=== PATIENT | male | born 1950 | race Caucasian/White ===

== ENCOUNTER 2017-07-20 18:05 | Inpatient (IN) | payer OTHER ==
[2017-07-20 22:05] LABS: ADD MAN DIFF? NO
[2017-07-20 22:06] LABS: BASOPHIL # 0.1 10^3/ul (0.0-0.1); BASOPHILS % 1.4 % (0.0-2.0); EOSINOPHILS # 0.3 10^3/ul (0.0-0.5); EOSINOPHILS % 4.3 % (0.0-7.0); HEMOGLOBIN 13.7 g/dl (14.0-18.0); LYMPHOCYTES # 2.1 10^3/ul (0.8-2.9); LYMPHOCYTES % 32.7 % (15.0-51.0); MEAN CORPUSCULAR HEMOGLOBIN 33.3 pg (29.0-33.0); MEAN CORPUSCULAR HGB CONC 34.3 g/dl (32.0-37.0); MEAN CORPUSCULAR VOLUME 97.1 fl (82.0-101.0); MEAN PLATELET VOLUME 10.5 fl (7.4-10.4); MONOCYTE # 0.8 10^3/ul (0.3-0.9); MONOCYTES % 12.8 % (0.0-11.0); NEUTROPHIL # 3.2 10^3/ul (1.6-7.5); NEUTROPHILS % 48.5 % (39.0-77.0); PLATELET COUNT 169 10^3/UL (140-415); RED BLOOD COUNT 4.12 10^6/ul (4.70-6.10); RED CELL DISTRIBUTION WIDTH 14.4 % (11.5-14.5)
[2017-07-20 22:06] LABS: WHITE BLOOD COUNT 6.5 10^3/ul (4.8-10.8)
[2017-07-20 22:18] LABS: PROTIME 16.4 Sec (11.9-14.9); PT RATIO 1.3
[2017-07-20 22:19] LABS: PARTIAL THROMBOPLASTIN TIME 35.9 Sec (25.0-35.0)
[2017-07-20] MEDS: SOD CHLORIDE 0.9% 500 ML IV (22:19)
[2017-07-20] MEDS: morphine 4 MG/ML VIAL IV (22:30)
[2017-07-20 23:00] LABS: ALANINE AMINOTRANSFERASE 49 IU/L (13-69); ALBUMIN 3.1 g/dl (3.3-4.9); ALBUMIN/GLOBULIN RATIO 0.63; ALKALINE PHOSPHATASE 153 IU/L (42-121); ANION GAP 15 (8-16); ASPARTATE AMINO TRANSFERASE 108 IU/L (15-46); BILIRUBIN,INDIRECT 1.6 mg/dl (0-1.1); BILIRUBIN,TOTAL 1.6 mg/dl (0.2-1.3); BLOOD UREA NITROGEN 9 mg/dl (7-20); CALCIUM 8.3 mg/dl (8.4-10.2); CARBON DIOXIDE 20 mmol/L (21-31); CHLORIDE 111 mmol/L (97-110); CREATININE 0.69 mg/dl (0.61-1.24); GLUCOSE 88 mg/dl (70-220); LIPASE 89 U/L (23-300); POTASSIUM 3.7 mmol/L (3.5-5.1); SODIUM 142 mmol/L (135-144)
[2017-07-20] MEDS: HYDROmorphONE 0.5 MG/0.5 ML SYG IV (23:26)
[2017-07-21] MEDS ORDERED: ACETAMINOPHEN 325 MG TAB PO (01:00)
[2017-07-21] MEDS ORDERED: ONDANSETRON 4 MG INJ IV (01:00)
[2017-07-21] MEDS ORDERED: traMADol 50 MG TAB PO (06:30)
[2017-07-21] MEDS: PANTOPRAZOLE 40 MG INJ IV (06:48)
[2017-07-21] MEDS: morphine 2 MG INJ IV (07:10)
[2017-07-21 08:43] LABS: ADD MAN DIFF? NO; HAAIG REFLEX REFLEX FILED
[2017-07-21 08:51] LABS: WHITE BLOOD COUNT 6.3 10^3/ul (4.8-10.8)
[2017-07-21 08:51] LABS: BASOPHIL # 0.1 10^3/ul (0.0-0.1); BASOPHILS % 1.4 % (0.0-2.0); EOSINOPHILS # 0.3 10^3/ul (0.0-0.5); EOSINOPHILS % 4.1 % (0.0-7.0); HEMATOCRIT 37.4 % (42.0-52.0); HEMOGLOBIN 12.8 g/dl (14.0-18.0); LYMPHOCYTES # 1.8 10^3/ul (0.8-2.9); LYMPHOCYTES % 28.7 % (15.0-51.0); MEAN CORPUSCULAR HEMOGLOBIN 33.4 pg (29.0-33.0); MEAN CORPUSCULAR HGB CONC 34.2 g/dl (32.0-37.0); MEAN CORPUSCULAR VOLUME 97.7 fl (82.0-101.0); MEAN PLATELET VOLUME 10.7 fl (7.4-10.4); MONOCYTE # 0.9 10^3/ul (0.3-0.9); MONOCYTES % 13.9 % (0.0-11.0); NEUTROPHIL # 3.3 10^3/ul (1.6-7.5); NEUTROPHILS % 51.6 % (39.0-77.0); PLATELET COUNT 162 10^3/UL (140-415); RED BLOOD COUNT 3.83 10^6/ul (4.70-6.10); RED CELL DISTRIBUTION WIDTH 14.6 % (11.5-14.5)
[2017-07-21 09:15] LABS: ALANINE AMINOTRANSFERASE 50 IU/L (13-69); ALBUMIN 2.8 g/dl (3.3-4.9); ALBUMIN/GLOBULIN RATIO 0.63; ALKALINE PHOSPHATASE 117 IU/L (42-121); ANION GAP 14 (8-16); ASPARTATE AMINO TRANSFERASE 98 IU/L (15-46); BILIRUBIN,INDIRECT 1.6 mg/dl (0-1.1); BILIRUBIN,TOTAL 1.6 mg/dl (0.2-1.3); BLOOD UREA NITROGEN 10 mg/dl (7-20); CALCIUM 8.1 mg/dl (8.4-10.2); CARBON DIOXIDE 21 mmol/L (21-31); CHLORIDE 112 mmol/L (97-110); CREATININE 0.73 mg/dl (0.61-1.24); GLUCOSE 78 mg/dl (70-220); POTASSIUM 3.9 mmol/L (3.5-5.1); SODIUM 143 mmol/L (135-144); TOTAL PROTEIN 7.2 g/dl (6.1-8.1)
[2017-07-21 09:45] LABS: HEPATITIS B SURFACE ANTIGEN NEGATIVE (NEGATIVE)
[2017-07-21 10:04] LABS: HEPATITIS B CORE ANTIBODY NEGATIVE (NEGATIVE)
[2017-07-21 10:05] LABS: HEPATITIS C VIRAL ANTIBODY REACTIVE (NEGATIVE)
[2017-07-21] MEDS: LIDOCAINE 1% (MDV) 10 ML INJ (11:18)
[2017-07-21] MEDS: FUROSEMIDE 20 MG INJ IV ×2 (11:34→17:31)
[2017-07-21] MEDS: SPIRONOLACTONE 25 MG TAB PO (11:34)
[2017-07-21] MEDS: METOPROLOL (XL) 25 MG TAB PO (11:34)
[2017-07-21 12:06] LABS: LACTATE DEHYDROGENASE 183 IU/L (313-618)
[2017-07-21 12:07] LABS: FLUID TYPE PARACENTESIS FLUID
[2017-07-21 12:21] LABS: FLD RBC 0 /uL; FLD WBC 0 /cmm
[2017-07-21 12:24] LABS: FLD TYPE PARACENTHESIS
[2017-07-21 12:25] LABS: FLD CLARITY CLEAR; FLD COLOR YELLOW
[2017-07-21 13:13] LABS: FLUID LD 183 U/L; FLUID TOTAL PROTEIN < 2.0 g/dl
[2017-07-22] MEDS: FUROSEMIDE 20 MG INJ IV ×2 (06:00→19:16)
[2017-07-22] MEDS: PANTOPRAZOLE 40 MG INJ IV (06:00)
[2017-07-22] MEDS: SPIRONOLACTONE 25 MG TAB PO (06:00)
[2017-07-22 06:24] LABS: ADD MAN DIFF? NO
[2017-07-22 06:30] LABS: BASOPHIL # 0.1 10^3/ul (0.0-0.1); BASOPHILS % 1.1 % (0.0-2.0); EOSINOPHILS # 0.2 10^3/ul (0.0-0.5); EOSINOPHILS % 2.8 % (0.0-7.0); HEMATOCRIT 37.5 % (42.0-52.0); HEMOGLOBIN 12.9 g/dl (14.0-18.0); LYMPHOCYTES # 2.1 10^3/ul (0.8-2.9); LYMPHOCYTES % 26.4 % (15.0-51.0); MEAN CORPUSCULAR HEMOGLOBIN 33.3 pg (29.0-33.0); MEAN CORPUSCULAR HGB CONC 34.4 g/dl (32.0-37.0); MEAN CORPUSCULAR VOLUME 96.9 fl (82.0-101.0); MEAN PLATELET VOLUME 10.7 fl (7.4-10.4); MONOCYTE # 1.2 10^3/ul (0.3-0.9); MONOCYTES % 14.4 % (0.0-11.0); NEUTROPHIL # 4.4 10^3/ul (1.6-7.5); PLATELET COUNT 156 10^3/UL (140-415); RED BLOOD COUNT 3.87 10^6/ul (4.70-6.10); RED CELL DISTRIBUTION WIDTH 14.2 % (11.5-14.5)
[2017-07-22 06:58] LABS: ANION GAP 13 (8-16); BLOOD UREA NITROGEN 12 mg/dl (7-20); CALCIUM 7.8 mg/dl (8.4-10.2); CARBON DIOXIDE 25 mmol/L (21-31); CHLORIDE 110 mmol/L (97-110); CREATININE 0.85 mg/dl (0.61-1.24); GLUCOSE 83 mg/dl (70-220); POTASSIUM 4.6 mmol/L (3.5-5.1); SODIUM 143 mmol/L (135-144)
[2017-07-22] MEDS: METOPROLOL (XL) 25 MG TAB PO (09:47)
[2017-07-22] MEDS ORDERED: BISACODYL 10 MG SUPP PR (10:30)
[2017-07-22 11:59] LABS: ADD MAN DIFF? NO
[2017-07-22 12:18] LABS: BASOPHIL # 0.1 10^3/ul (0.0-0.1); BASOPHILS % 1.3 % (0.0-2.0); EOSINOPHILS # 0.2 10^3/ul (0.0-0.5); EOSINOPHILS % 2.6 % (0.0-7.0); HEMOGLOBIN 12.2 g/dl (14.0-18.0); LYMPHOCYTES # 2.1 10^3/ul (0.8-2.9); LYMPHOCYTES % 27.1 % (15.0-51.0); MEAN CORPUSCULAR HEMOGLOBIN 33.2 pg (29.0-33.0); MEAN CORPUSCULAR HGB CONC 34.9 g/dl (32.0-37.0); MEAN CORPUSCULAR VOLUME 95.1 fl (82.0-101.0); MEAN PLATELET VOLUME 10.8 fl (7.4-10.4); MONOCYTES % 13.4 % (0.0-11.0); NEUTROPHIL # 4.3 10^3/ul (1.6-7.5); NEUTROPHILS % 55.5 % (39.0-77.0); PLATELET COUNT 164 10^3/UL (140-415); RED BLOOD COUNT 3.68 10^6/ul (4.70-6.10); RED CELL DISTRIBUTION WIDTH 14.2 % (11.5-14.5)
[2017-07-22 12:18] LABS: WHITE BLOOD COUNT 7.7 10^3/ul (4.8-10.8)
[2017-07-23] MEDS: PANTOPRAZOLE (EC) 40 MG TAB PO (06:24)
[2017-07-23] MEDS: SPIRONOLACTONE 25 MG TAB PO (06:24)
[2017-07-23] MEDS: FUROSEMIDE 20 MG INJ IV ×2 (06:25→17:36)
[2017-07-23] MEDS: METOPROLOL (XL) 25 MG TAB PO (09:00)
[2017-07-24] MEDS: PANTOPRAZOLE (EC) 40 MG TAB PO (05:19)
[2017-07-24] MEDS: SPIRONOLACTONE 25 MG TAB PO (05:23)
[2017-07-24] MEDS: FUROSEMIDE 20 MG INJ IV ×2 (05:25→18:31)
[2017-07-24] MEDS ORDERED: LORAZEPAM 2 MG INJ IV (07:00)
[2017-07-24] MEDS ORDERED: ONDANSETRON 4 MG INJ IV (07:00)
[2017-07-24 07:48] LABS: AMMONIA 103 umol/l (9-30)
[2017-07-24] MEDS: THIAMINE 100 MG TAB PO (09:00)
[2017-07-24] MEDS: MULTIVITAMINS THERAPEUTIC TAB PO (09:00)
[2017-07-24] MEDS: METOPROLOL (XL) 25 MG TAB PO (09:00)
[2017-07-24] MEDS: FOLIC ACID 1 MG TAB PO (09:00)
[2017-07-24] MEDS: LACTULOSE 30ML CUP PO ×3 (12:00→23:16)
[2017-07-24] MEDS: LORAZEPAM 2 MG INJ IV ×3 (12:29→23:47)
[2017-07-24] MEDS: RIFAXIMIN 550 MG TAB PO ×2 (13:45→21:00)
[2017-07-24] MEDS: morphine 2 MG INJ IV (15:21)
[2017-07-24 15:29] LABS: ALANINE AMINOTRANSFERASE 50 IU/L (13-69); ALBUMIN 2.7 g/dl (3.3-4.9); ALBUMIN/GLOBULIN RATIO 0.69; ALKALINE PHOSPHATASE 117 IU/L (42-121); ANION GAP 15 (8-16); ASPARTATE AMINO TRANSFERASE 105 IU/L (15-46); BILIRUBIN,INDIRECT 1.4 mg/dl (0-1.1); BILIRUBIN,TOTAL 1.4 mg/dl (0.2-1.3); BLOOD UREA NITROGEN 15 mg/dl (7-20); CALCIUM 8.4 mg/dl (8.4-10.2); CARBON DIOXIDE 22 mmol/L (21-31); CHLORIDE 112 mmol/L (97-110); CREATININE 0.86 mg/dl (0.61-1.24); GLUCOSE 97 mg/dl (70-220); POTASSIUM 3.8 mmol/L (3.5-5.1); SODIUM 145 mmol/L (135-144); TOTAL PROTEIN 6.6 g/dl (6.1-8.1)
[2017-07-24] MEDS: LACTULOSE ENEMA 1,000 ML BTL PR ×2 (18:32→23:46)
[2017-07-25] MEDS: morphine 2 MG INJ IV (03:59)
[2017-07-25] MEDS: FUROSEMIDE 20 MG INJ IV ×2 (05:31→18:38)
[2017-07-25] MEDS: SPIRONOLACTONE 25 MG TAB PO (05:31)
[2017-07-25] MEDS: LACTULOSE 30ML CUP PO ×3 (05:31→18:00)
[2017-07-25] MEDS: LACTULOSE ENEMA 1,000 ML BTL PR ×3 (05:32→18:39)
[2017-07-25] MEDS: PANTOPRAZOLE (EC) 40 MG TAB PO (05:32)
[2017-07-25] MEDS: LORAZEPAM 2 MG INJ IV ×4 (06:42→21:01)
[2017-07-25] MEDS: FOLIC ACID 1 MG TAB PO (09:00)
[2017-07-25] MEDS: THIAMINE 100 MG TAB PO (09:00)
[2017-07-25] MEDS: RIFAXIMIN 550 MG TAB PO ×2 (09:00→21:00)
[2017-07-25] MEDS: MULTIVITAMINS THERAPEUTIC TAB PO (09:00)
[2017-07-25] MEDS: METOPROLOL (XL) 25 MG TAB PO (09:00)
[2017-07-25 09:03] LABS: ADD MAN DIFF? NO
[2017-07-25 09:04] LABS: WHITE BLOOD COUNT 7.7 10^3/ul (4.8-10.8)
[2017-07-25 09:04] LABS: BASOPHIL # 0.1 10^3/ul (0.0-0.1); BASOPHILS % 1.4 % (0.0-2.0); EOSINOPHILS # 0.2 10^3/ul (0.0-0.5); EOSINOPHILS % 2.3 % (0.0-7.0); HEMATOCRIT 40.7 % (42.0-52.0); HEMOGLOBIN 13.7 g/dl (14.0-18.0); LYMPHOCYTES # 2.5 10^3/ul (0.8-2.9); LYMPHOCYTES % 32.2 % (15.0-51.0); MEAN CORPUSCULAR HEMOGLOBIN 32.6 pg (29.0-33.0); MEAN CORPUSCULAR HGB CONC 33.7 g/dl (32.0-37.0); MEAN CORPUSCULAR VOLUME 96.9 fl (82.0-101.0); MEAN PLATELET VOLUME 11.4 fl (7.4-10.4); MONOCYTE # 1.1 10^3/ul (0.3-0.9); MONOCYTES % 14.2 % (0.0-11.0); NEUTROPHIL # 3.8 10^3/ul (1.6-7.5); NEUTROPHILS % 49.6 % (39.0-77.0); PLATELET COUNT 170 10^3/UL (140-415); RED CELL DISTRIBUTION WIDTH 14.6 % (11.5-14.5)
[2017-07-25] MEDS: MULTIVITAMINS 10 ML, THIAMINE 100 MG, FOLIC ACID 1 MG in SOD CHLORIDE 0.9% 1,000 ML IVPB (09:04)
[2017-07-25 09:29] LABS: AMMONIA 14 umol/l (9-30)
[2017-07-25 09:32] LABS: MAGNESIUM 1.8 mg/dl (1.7-2.5)
[2017-07-25 09:32] LABS: PHOSPHORUS 4.6 mg/dl (2.5-4.9)
[2017-07-25 09:40] LABS: ALANINE AMINOTRANSFERASE 55 IU/L (13-69); ALBUMIN 2.6 g/dl (3.3-4.9); ALKALINE PHOSPHATASE 110 IU/L (42-121); ANION GAP 15 (8-16); ASPARTATE AMINO TRANSFERASE 105 IU/L (15-46); BILIRUBIN,INDIRECT 1.4 mg/dl (0-1.1); BILIRUBIN,TOTAL 1.4 mg/dl (0.2-1.3); BLOOD UREA NITROGEN 17 mg/dl (7-20); CALCIUM 8.5 mg/dl (8.4-10.2); CARBON DIOXIDE 24 mmol/L (21-31); CHLORIDE 114 mmol/L (97-110); CREATININE 0.81 mg/dl (0.61-1.24); GLUCOSE 91 mg/dl (70-220); POTASSIUM 3.9 mmol/L (3.5-5.1); SODIUM 149 mmol/L (135-144); TOTAL PROTEIN 6.9 g/dl (6.1-8.1)
[2017-07-25 13:12] LABS: AMMONIA 26 umol/l (9-30)
[2017-07-25] MEDS: DEXTROSE 5% 1,000 ML IV (16:39)
[2017-07-26] MEDS: LACTULOSE ENEMA 1,000 ML BTL PR ×4 (00:30→17:48)
[2017-07-26] MEDS: LORAZEPAM 2 MG INJ IV ×2 (01:32→10:11)
[2017-07-26] MEDS: LACTULOSE 30ML CUP PO ×4 (06:00→17:48)
[2017-07-26] MEDS: SPIRONOLACTONE 25 MG TAB PO (06:00)
[2017-07-26] MEDS: PANTOPRAZOLE (EC) 40 MG TAB PO (06:00)
[2017-07-26] MEDS: FUROSEMIDE 20 MG INJ IV (06:19)
[2017-07-26 06:27] LABS: ADD MAN DIFF? NO; BASOPHIL # 0.1 10^3/ul (0.0-0.1); BASOPHILS % 1.2 % (0.0-2.0); EOSINOPHILS # 0.1 10^3/ul (0.0-0.5); EOSINOPHILS % 1.7 % (0.0-7.0); HEMATOCRIT 39.6 % (42.0-52.0); HEMOGLOBIN 13.5 g/dl (14.0-18.0); LYMPHOCYTES # 2.3 10^3/ul (0.8-2.9); LYMPHOCYTES % 27.2 % (15.0-51.0); MEAN CORPUSCULAR HEMOGLOBIN 33.2 pg (29.0-33.0); MEAN CORPUSCULAR HGB CONC 34.1 g/dl (32.0-37.0); MEAN CORPUSCULAR VOLUME 97.3 fl (82.0-101.0); MEAN PLATELET VOLUME 11.1 fl (7.4-10.4); MONOCYTE # 1.2 10^3/ul (0.3-0.9); MONOCYTES % 14.5 % (0.0-11.0); NEUTROPHIL # 4.6 10^3/ul (1.6-7.5); PLATELET COUNT 166 10^3/UL (140-415); RED BLOOD COUNT 4.07 10^6/ul (4.70-6.10); RED CELL DISTRIBUTION WIDTH 14.3 % (11.5-14.5)
[2017-07-26 06:27] LABS: WHITE BLOOD COUNT 8.3 10^3/ul (4.8-10.8)
[2017-07-26 06:56] LABS: ALANINE AMINOTRANSFERASE 54 IU/L (13-69); ALBUMIN 2.8 g/dl (3.3-4.9); ALBUMIN/GLOBULIN RATIO 0.62; ALKALINE PHOSPHATASE 112 IU/L (42-121); ANION GAP 17 (8-16); ASPARTATE AMINO TRANSFERASE 136 IU/L (15-46); BILIRUBIN,INDIRECT 1.9 mg/dl (0-1.1); BILIRUBIN,TOTAL 1.9 mg/dl (0.2-1.3); BLOOD UREA NITROGEN 17 mg/dl (7-20); CALCIUM 8.6 mg/dl (8.4-10.2); CARBON DIOXIDE 21 mmol/L (21-31); CHLORIDE 117 mmol/L (97-110); CREATININE 0.76 mg/dl (0.61-1.24); GLUCOSE 88 mg/dl (70-220); POTASSIUM 3.7 mmol/L (3.5-5.1); SODIUM 151 mmol/L (135-144); TOTAL PROTEIN 7.3 g/dl (6.1-8.1)
[2017-07-26 07:03] LABS: PHOSPHORUS 3.8 mg/dl (2.5-4.9)
[2017-07-26 07:03] LABS: MAGNESIUM 1.8 mg/dl (1.7-2.5)
[2017-07-26] MEDS: THIAMINE 100 MG TAB PO (08:18)
[2017-07-26] MEDS: MULTIVITAMINS THERAPEUTIC TAB PO (08:18)
[2017-07-26] MEDS: METOPROLOL (XL) 25 MG TAB PO (08:18)
[2017-07-26] MEDS: FOLIC ACID 1 MG TAB PO (08:18)
[2017-07-26] MEDS: RIFAXIMIN 550 MG TAB PO ×2 (08:19→21:00)
[2017-07-26] MEDS: MULTIVITAMINS 10 ML, THIAMINE 100 MG, FOLIC ACID 1 MG in SOD CHLORIDE 0.9% 1,000 ML IVPB (09:02)
[2017-07-26] MEDS: DEXTROSE 5% 1,000 ML IV (12:01)
[2017-07-26] MEDS: METOPROLOL 5 MG INJ IV (16:34)
[2017-07-27] MEDS: LACTULOSE ENEMA 1,000 ML BTL PR ×4 (00:35→18:39)
[2017-07-27] MEDS: DEXTROSE 5% 1,000 ML IV ×2 (01:02→14:58)
[2017-07-27] MEDS: LORAZEPAM 2 MG INJ IV (02:10)
[2017-07-27] MEDS: PANTOPRAZOLE 40 MG INJ IV (05:38)
[2017-07-27] MEDS: SPIRONOLACTONE 25 MG TAB PO (05:42)
[2017-07-27] MEDS: LACTULOSE 30ML CUP PO ×4 (05:42→17:13)
[2017-07-27 07:18] LABS: ADD MAN DIFF? NO
[2017-07-27 07:28] LABS: WHITE BLOOD COUNT 9.2 10^3/ul (4.8-10.8)
[2017-07-27 07:28] LABS: BASOPHIL # 0.1 10^3/ul (0.0-0.1); EOSINOPHILS # 0.3 10^3/ul (0.0-0.5); EOSINOPHILS % 2.8 % (0.0-7.0); HEMATOCRIT 41.5 % (42.0-52.0); HEMOGLOBIN 13.9 g/dl (14.0-18.0); LYMPHOCYTES # 2.6 10^3/ul (0.8-2.9); LYMPHOCYTES % 28.1 % (15.0-51.0); MEAN CORPUSCULAR HEMOGLOBIN 32.8 pg (29.0-33.0); MEAN CORPUSCULAR HGB CONC 33.5 g/dl (32.0-37.0); MEAN CORPUSCULAR VOLUME 97.9 fl (82.0-101.0); MEAN PLATELET VOLUME 11.2 fl (7.4-10.4); MONOCYTE # 1.4 10^3/ul (0.3-0.9); NEUTROPHIL # 4.8 10^3/ul (1.6-7.5); NEUTROPHILS % 52.9 % (39.0-77.0); PLATELET COUNT 134 10^3/UL (140-415); POSITIVE DIFF @See below; RED BLOOD COUNT 4.24 10^6/ul (4.70-6.10); RED CELL DISTRIBUTION WIDTH 14.4 % (11.5-14.5)
[2017-07-27 07:47] LABS: PHOSPHORUS 3.5 mg/dl (2.5-4.9)
[2017-07-27 07:47] LABS: MAGNESIUM 1.9 mg/dl (1.7-2.5)
[2017-07-27 07:48] LABS: ALANINE AMINOTRANSFERASE 64 IU/L (13-69); ALBUMIN 2.8 g/dl (3.3-4.9); ALBUMIN/GLOBULIN RATIO 0.66; ALKALINE PHOSPHATASE 117 IU/L (42-121); ANION GAP 15 (8-16); ASPARTATE AMINO TRANSFERASE 178 IU/L (15-46); BILIRUBIN,INDIRECT 2.1 mg/dl (0-1.1); BILIRUBIN,TOTAL 2.1 mg/dl (0.2-1.3); BLOOD UREA NITROGEN 15 mg/dl (7-20); CALCIUM 8.4 mg/dl (8.4-10.2); CARBON DIOXIDE 23 mmol/L (21-31); CHLORIDE 117 mmol/L (97-110); CREATININE 0.71 mg/dl (0.61-1.24); GLUCOSE 107 mg/dl (70-220); POTASSIUM 3.3 mmol/L (3.5-5.1); SODIUM 152 mmol/L (135-144)
[2017-07-27 07:49] LABS: AMMONIA 25 umol/l (9-30)
[2017-07-27] MEDS: METOPROLOL (XL) 25 MG TAB PO (08:00)
[2017-07-27] MEDS: FOLIC ACID 1 MG TAB PO (08:00)
[2017-07-27] MEDS: MULTIVITAMINS THERAPEUTIC TAB PO (08:00)
[2017-07-27] MEDS: THIAMINE 100 MG TAB PO (08:01)
[2017-07-27] MEDS: RIFAXIMIN 550 MG TAB PO ×2 (08:01→21:00)
[2017-07-27] MEDS: MULTIVITAMINS 10 ML, THIAMINE 100 MG, FOLIC ACID 1 MG in SOD CHLORIDE 0.9% 1,000 ML IVPB (09:56)
[2017-07-27 19:34] LABS: ADD UMIC YES; UR ASCORBIC ACID NEGATIVE (NEGATIVE); UR BACTERIA FEW /HPF (NONE SEEN); UR BILIRUBIN (Dip) NEGATIVE (NEGATIVE); UR BLOOD (Dip) 3+ mg/dL (NEGATIVE); UR CLARITY CLOUDY (CLEAR); UR COLOR AMBER (YELLOW); UR GLUCOSE (Dip) 1+ mg/dL (NEGATIVE); UR KETONES (Dip) NEGATIVE (NEGATIVE); UR LEUKOCYTE ESTERASE (Dip) NEGATIVE Leu/ul (NEGATIVE); UR MUCUS MODERATE /HPF (NONE SEEN); UR NITRITE (Dip) NEGATIVE (NEGATIVE); UR NONSQUAMOUS EPITHELIAL CELL 1 /HPF (NONE SEEN); UR RBC > 182 /HPF (0-5); UR SPECIFIC GRAVITY (Dip) 1.026 (1.003-1.030); UR TOTAL PROTEIN (Dip) 2+ mg/dl (NEGATIVE); UR UROBILINOGEN (Dip) 2+ mg/dL (NEGATIVE); UR WBC 98 /HPF (0-5)
[2017-07-27] MEDS: POTASSIUM CHLORIDE 100 ML IVPB (20:38)
[2017-07-28] MEDS: CEFTRIAXONE 1 GM/50 ML (PMX) 50 ML IVPB ×2 (00:51→23:48)
[2017-07-28] MEDS: DEXTROSE 5% 1,000 ML IV ×2 (01:19→12:49)
[2017-07-28] MEDS: POTASSIUM CHLORIDE 100 ML IVPB ×3 (02:01→15:50)
[2017-07-28] MEDS: PANTOPRAZOLE 40 MG INJ IV (05:33)
[2017-07-28] MEDS: LACTULOSE ENEMA 1,000 ML BTL PR ×4 (05:33→18:00)
[2017-07-28] MEDS: SPIRONOLACTONE 25 MG TAB PO (05:37)
[2017-07-28] MEDS: LACTULOSE 30ML CUP PO ×4 (05:37→18:00)
[2017-07-28 07:37] LABS: ADD MAN DIFF? NO
[2017-07-28 07:40] LABS: BASOPHIL # 0.1 10^3/ul (0.0-0.1); BASOPHILS % 1.3 % (0.0-2.0); EOSINOPHILS # 0.4 10^3/ul (0.0-0.5); EOSINOPHILS % 4.4 % (0.0-7.0); HEMATOCRIT 38.4 % (42.0-52.0); HEMOGLOBIN 13.1 g/dl (14.0-18.0); LYMPHOCYTES # 2.4 10^3/ul (0.8-2.9); LYMPHOCYTES % 26.8 % (15.0-51.0); MEAN CORPUSCULAR HGB CONC 34.1 g/dl (32.0-37.0); MEAN CORPUSCULAR VOLUME 96.7 fl (82.0-101.0); MEAN PLATELET VOLUME 11.2 fl (7.4-10.4); MONOCYTE # 1.2 10^3/ul (0.3-0.9); MONOCYTES % 12.8 % (0.0-11.0); NEUTROPHIL # 4.9 10^3/ul (1.6-7.5); NEUTROPHILS % 54.4 % (39.0-77.0); PLATELET COUNT 154 10^3/UL (140-415); RED BLOOD COUNT 3.97 10^6/ul (4.70-6.10); RED CELL DISTRIBUTION WIDTH 14.2 % (11.5-14.5)
[2017-07-28 08:02] LABS: PHOSPHORUS 2.9 mg/dl (2.5-4.9)
[2017-07-28 08:02] LABS: MAGNESIUM 1.8 mg/dl (1.7-2.5)
[2017-07-28 08:03] LABS: ALANINE AMINOTRANSFERASE 64 IU/L (13-69); ALBUMIN 2.5 g/dl (3.3-4.9); ALBUMIN/GLOBULIN RATIO 0.62; ALKALINE PHOSPHATASE 100 IU/L (42-121); ANION GAP 11 (8-16); ASPARTATE AMINO TRANSFERASE 152 IU/L (15-46); BILIRUBIN,INDIRECT 1.5 mg/dl (0-1.1); BILIRUBIN,TOTAL 1.5 mg/dl (0.2-1.3); BLOOD UREA NITROGEN 12 mg/dl (7-20); CARBON DIOXIDE 24 mmol/L (21-31); CHLORIDE 116 mmol/L (97-110); CREATININE 0.63 mg/dl (0.61-1.24); GLUCOSE 111 mg/dl (70-220); POTASSIUM 3.3 mmol/L (3.5-5.1); SODIUM 148 mmol/L (135-144); TOTAL PROTEIN 6.5 g/dl (6.1-8.1)
[2017-07-28] MEDS: METOPROLOL (XL) 25 MG TAB PO (09:00)
[2017-07-28] MEDS: RIFAXIMIN 550 MG TAB PO ×2 (09:00→21:00)
[2017-07-28] MEDS: MULTIVITAMINS THERAPEUTIC TAB PO (09:00)
[2017-07-28] MEDS: FOLIC ACID 1 MG TAB PO (09:00)
[2017-07-28] MEDS: THIAMINE 100 MG TAB PO (09:00)
[2017-07-28 11:28] LABS: PREALBUMIN 3.5 mg/dl (17.6-36.0)
[2017-07-28] MEDS ORDERED: TPN 1,000 ML IV (11:30)
[2017-07-28 12:26] LABS: TRIGLYCERIDES 55 mg/dl (0-149)
[2017-07-28] MEDS: ACCU-CHEK XX ×3 (13:00→20:49)
[2017-07-28 15:36] LABS: RAPID PLASMA REAGIN NONREACTIVE (NR)
[2017-07-28] MEDS: TPN 1,000 ML IV (20:43)
[2017-07-29] MEDS: ACCU-CHEK XX ×3 (01:16→09:00)
[2017-07-29] MEDS: LACTULOSE ENEMA 1,000 ML BTL PR ×2 (06:00)
[2017-07-29] MEDS: SPIRONOLACTONE 25 MG TAB PO (06:00)
[2017-07-29] MEDS: LACTULOSE 30ML CUP PO ×3 (06:00→20:32)
[2017-07-29] MEDS: PANTOPRAZOLE 40 MG INJ IV (06:13)
[2017-07-29 06:23] LABS: ADD MAN DIFF? NO
[2017-07-29 06:30] LABS: BASOPHIL # 0.1 10^3/ul (0.0-0.1); BASOPHILS % 1.1 % (0.0-2.0); EOSINOPHILS # 0.5 10^3/ul (0.0-0.5); EOSINOPHILS % 4.9 % (0.0-7.0); HEMATOCRIT 37.8 % (42.0-52.0); HEMOGLOBIN 12.9 g/dl (14.0-18.0); LYMPHOCYTES # 2.5 10^3/ul (0.8-2.9); LYMPHOCYTES % 26.7 % (15.0-51.0); MEAN CORPUSCULAR HEMOGLOBIN 33.2 pg (29.0-33.0); MEAN CORPUSCULAR HGB CONC 34.1 g/dl (32.0-37.0); MEAN CORPUSCULAR VOLUME 97.2 fl (82.0-101.0); MEAN PLATELET VOLUME 11.4 fl (7.4-10.4); MONOCYTE # 1.4 10^3/ul (0.3-0.9); MONOCYTES % 14.9 % (0.0-11.0); NEUTROPHIL # 4.8 10^3/ul (1.6-7.5); NEUTROPHILS % 52.2 % (39.0-77.0); PLATELET COUNT 150 10^3/UL (140-415); RED BLOOD COUNT 3.89 10^6/ul (4.70-6.10); RED CELL DISTRIBUTION WIDTH 14.4 % (11.5-14.5)
[2017-07-29 06:30] LABS: WHITE BLOOD COUNT 9.2 10^3/ul (4.8-10.8)
[2017-07-29 06:38] LABS: AMMONIA 28 umol/l (9-30)
[2017-07-29 06:59] LABS: ANION GAP 11 (8-16); BLOOD UREA NITROGEN 13 mg/dl (7-20); CALCIUM 7.8 mg/dl (8.4-10.2); CARBON DIOXIDE 22 mmol/L (21-31); CHLORIDE 114 mmol/L (97-110); CREATININE 0.67 mg/dl (0.61-1.24); GLUCOSE 98 mg/dl (70-220); POTASSIUM 3.9 mmol/L (3.5-5.1); SODIUM 143 mmol/L (135-144)
[2017-07-29 07:08] LABS: MAGNESIUM 1.8 mg/dl (1.7-2.5)
[2017-07-29 07:08] LABS: PHOSPHORUS 3.1 mg/dl (2.5-4.9)
[2017-07-29] MEDS: MULTIVITAMINS THERAPEUTIC TAB PO (09:26)
[2017-07-29] MEDS: RIFAXIMIN 550 MG TAB PO ×2 (09:26→20:32)
[2017-07-29] MEDS: THIAMINE 100 MG TAB PO (09:27)
[2017-07-29] MEDS: FOLIC ACID 1 MG TAB PO (09:27)
[2017-07-29] MEDS: METOPROLOL (XL) 25 MG TAB PO (09:27)
[2017-07-29] MEDS: CEFTRIAXONE 1 GM/50 ML (PMX) 50 ML IVPB (23:25)
[2017-07-30] MEDS: PANTOPRAZOLE 40 MG INJ IV (05:54)
[2017-07-30] MEDS: SPIRONOLACTONE 25 MG TAB PO (05:54)
[2017-07-30 06:31] LABS: ADD MAN DIFF? NO
[2017-07-30 06:40] LABS: BASOPHIL # 0.1 10^3/ul (0.0-0.1); BASOPHILS % 1.2 % (0.0-2.0); EOSINOPHILS # 0.5 10^3/ul (0.0-0.5); HEMATOCRIT 38.7 % (42.0-52.0); HEMOGLOBIN 13.1 g/dl (14.0-18.0); LYMPHOCYTES # 3.1 10^3/ul (0.8-2.9); LYMPHOCYTES % 34.9 % (15.0-51.0); MEAN CORPUSCULAR HEMOGLOBIN 32.4 pg (29.0-33.0); MEAN CORPUSCULAR HGB CONC 33.9 g/dl (32.0-37.0); MEAN CORPUSCULAR VOLUME 95.8 fl (82.0-101.0); MEAN PLATELET VOLUME 11.7 fl (7.4-10.4); MONOCYTE # 1.2 10^3/ul (0.3-0.9); NEUTROPHIL # 4.1 10^3/ul (1.6-7.5); NEUTROPHILS % 45.6 % (39.0-77.0); PLATELET COUNT 153 10^3/UL (140-415); RED BLOOD COUNT 4.04 10^6/ul (4.70-6.10); RED CELL DISTRIBUTION WIDTH 14.6 % (11.5-14.5)
[2017-07-30 06:53] LABS: MAGNESIUM 1.8 mg/dl (1.7-2.5)
[2017-07-30 06:53] LABS: PHOSPHORUS 3.6 mg/dl (2.5-4.9)
[2017-07-30 06:57] LABS: ANION GAP 18 (8-16); BLOOD UREA NITROGEN 16 mg/dl (7-20); CALCIUM 7.8 mg/dl (8.4-10.2); CARBON DIOXIDE 20 mmol/L (21-31); CHLORIDE 109 mmol/L (97-110); CREATININE 0.65 mg/dl (0.61-1.24); GLUCOSE 75 mg/dl (70-220); POTASSIUM 4.1 mmol/L (3.5-5.1); SODIUM 143 mmol/L (135-144)
[2017-07-30] MEDS: MULTIVITAMINS THERAPEUTIC TAB PO (08:29)
[2017-07-30] MEDS: FOLIC ACID 1 MG TAB PO (08:29)
[2017-07-30] MEDS: THIAMINE 100 MG TAB PO (08:29)
[2017-07-30] MEDS: RIFAXIMIN 550 MG TAB PO ×2 (08:29→21:21)
[2017-07-30] MEDS: LACTULOSE 30ML CUP PO ×2 (08:29→21:21)
[2017-07-30] MEDS: METOPROLOL (XL) 25 MG TAB PO (08:30)
[2017-07-30] MEDS: FUROSEMIDE 20 MG TAB PO (10:26)
[2017-07-30] MEDS: NICOTINE (14 MG/24 HR) PATCH TRANSDERM (21:21)
[2017-07-30] MEDS: CEFTRIAXONE 1 GM/50 ML (PMX) 50 ML IVPB (22:10)
[2017-07-31] MEDS: PANTOPRAZOLE 40 MG INJ IV (06:39)
[2017-07-31] MEDS: SPIRONOLACTONE 25 MG TAB PO (06:40)
[2017-07-31] MEDS: ACETAMINOPHEN 325 MG TAB PO (06:47)
[2017-07-31] MEDS: THIAMINE 100 MG TAB PO (09:15)
[2017-07-31] MEDS: METOPROLOL (XL) 25 MG TAB PO (09:18)
[2017-07-31] MEDS: RIFAXIMIN 550 MG TAB PO (09:19)
[2017-07-31] MEDS: MULTIVITAMINS THERAPEUTIC TAB PO (09:19)
[2017-07-31] MEDS: LACTULOSE 30ML CUP PO (09:20)
[2017-07-31] MEDS: FUROSEMIDE 20 MG TAB PO (09:20)
[2017-07-31] MEDS: FOLIC ACID 1 MG TAB PO (09:21)
[2017-07-31] MEDS: NICOTINE (14 MG/24 HR) PATCH TRANSDERM (12:12)
[2017-08-01] MEDS ORDERED: SPIRONOLACTONE 50 MG TAB PO (06:00)
[2017-08-01] MEDS ORDERED: FUROSEMIDE 40 MG TAB PO (09:00)
== END 2017-07-31 15:35 | disposition left against medical advice (07) | DRG 432 ==
LOC: MS3 07-21 01:02 → MS2 07-22 03:06 → E/R 18:05 → TEL 07-24 19:55
PROC: 0W9G3ZX Drainage of Peritoneal Cavity, Percutaneous Approach, Diagnostic (ICD-10-PCS; principal; 2017-07-21)
DX: K70.31 Alcoholic cirrhosis of liver with ascites (principal); K72.00 Acute and subacute hepatic failure without coma; G92 Toxic encephalopathy; J90 Pleural effusion, not elsewhere classified; K76.6 Portal hypertension; K57.30 Diverticulosis of large intestine without perforation or abscess without bleeding; I10 Essential (primary) hypertension; I70.0 Atherosclerosis of aorta; M47.896 Other spondylosis, lumbar region; E88.09 Other disorders of plasma-protein metabolism, not elsewhere classified; E80.6 Other disorders of bilirubin metabolism; F17.200 Nicotine dependence, unspecified, uncomplicated; D64.9 Anemia, unspecified; B19.20 Unspecified viral hepatitis C without hepatic coma; N28.89 Other specified disorders of kidney and ureter
CPT/HCPCS: 36415; 70450; 70551; 71045; 74176; 80048; 80053; 81001; 82042; 82140; 82607; 82962; 83615; 83690; 83735; 84100; 84134; 84157; 84478; 85025; 85610; 85730; 86592; 86704; 86709; 86803; 87070; 87086; 87102; 87116; 87340; 88104; 88305; 89051; 92610; 93880; 96374; 96375; 99285-25